=== PATIENT | female | born 1945 ===

== ENCOUNTER 2024-06-23 09:06 | Inpatient (IN) | payer MEDICARE, OTHER, SELFPAY ==
--- NOTE | 2024-05-18 10:28 | CM ---
Addendum entered by Lilian Ramirez 05/26/24 09:27:
VN referral completed (but not sent) in [employer] with request for PT and SN services. CM to send referral to [facility] with additional clinical after surgery.
Original Note:
Patient is scheduled for an elective L TKR on 06/23/24. Spoke with patient prior to surgery via telephone. Introduced role of Orthopedic Navigator. Patient reports that she lives alone in a two story home. She has a lift to enter the home and to the
second floor. She currently functions independently and describes herself as active. She has no DME and has never had VN services. PCP is [facility]Bakti Nunez.
Discussed orthopedic program and post surgical plans. Reviewed anticipated length of stay and that goal is for her to return home at discharge. Also reviewed outpatient PT. Patient is in agreement with tentative plan but will need VN services.
Options discussed and she selects [facility]. She will have someone staying with her until the Friday after surgery.
Patient has completed online education.
[2024-05-31 10:03] VITALS: BMI 34.5
[2024-05-31 11:33] LABS: ALT (SGPT) 18 U/L (0-35); AST (SGOT) 23 U/L (14-36); Albumin 4.5 g/dl (3.5-5.0); Alkaline Phosphatase 60 U/L (38-126); Blood Urea Nitrogen 24 mg/dl (7-17); Calcium 9.8 mg/dl (8.4-10.2); Carbon Dioxide 22 mmol/L (22-30); Chloride 104 mmol/L (98-107); Estimated Creatinine Clearance 77 ml/min; Glucose 182 mg/dl (70-99); Potassium 3.7 mmol/L (3.5-5.1); Sodium 138 mmol/L (135-145); Total Bilirubin 0.6 mg/dl (0.2-1.3); Total Protein 6.5 g/dl (6.3-8.2); eGFR > 60.00
[2024-06-16 16:34] VITALS: BMI 34.5
[2024-06-23] VITALS (12 sets, daily range): BP systolic 103–134; BP diastolic 48–83; PULSE 68–75; O2SAT 96; BMI 34.5
[2024-06-23] MEDS: TYLENOL 650 MG PO ×3 (09:38→20:40)
[2024-06-23] MEDS: CELEBREX 200 MG PO (09:38)
[2024-06-23] MEDS: NORMOSOL-R 1000 IV ×2 (09:45→14:28)
[2024-06-23 09:53] LABS: Glucose - Point of Care 160 mg/dl (70-99)
--- NOTE | 2024-06-23 11:38 | W.DS.TRANS ---
DC Summary - Yarn Spinner
-
Discharge Instructions:
Discharge Diagnosis/Procedures L TKA Dr. Ovalle 06/23/24
Diet Diabetic, Carb Controlled
Activity With Walker
Driving Restrictions No driving
Bathing Restrictions OK to Shower
Other Services PT,VN
Instructions:
Stand-Alone Forms: Total Hip/Knee Replacement D/C
Changes to Home Medications: Yes
Discharge Medications:
DC Medications w/original date entered in [employer]
aliskiren 150 mg tablet 150 mg PO DAILY 06/16/24
empagliflozin 10 mg tablet (Jardiance) 10 mg PO DAILY 06/16/24
famotidine 20 mg tablet 20 mg PO HS 06/16/24
glipizide 10 mg tablet 10 mg PO BID 06/16/24
hydrochlorothiazide 25 mg tablet 25 mg PO DAILY 06/16/24
metformin 500 mg tablet 2,000 mg PO DAILY@1200 06/16/24
multivitamin 1 tab PO DAILY 06/16/24
mupirocin 2 % topical ointment 1 applic topical BID 06/16/24
semaglutide 1 mg/dose (4 mg/3 mL) subcutaneous pen injector (Ozempic) 1 mg SC TU 06/16/24
simvastatin 20 mg tablet 20 mg PO HS 06/16/24
Saccharomyces boulardii 250 mg capsule (Florastor) 250 mg PO BID #1 cap 06/23/24
acetaminophen 325 mg capsule (Tylenol) 650 mg (2 x 325 mg) PO QID #2 caps 06/23/24
aspirin 325 mg tablet 325 mg PO DAILY blood clot prevention #1 tab 06/23/24
cefadroxil 500 mg capsule 500 mg PO BID infection prevention #14 caps 06/23/24
celecoxib 200 mg capsule 200 mg PO DAILY anti-inflammatory #14 caps 06/23/24
docusate sodium 100 mg capsule (Colace) 100 mg PO BID stool softner #1 cap 06/23/24
insulin degludec 100 unit/mL (3 mL) subcutaneous pen (Tresiba FlexTouch U-100 insulin) 16 unit (0.16 mL) SC HS #0 mL 06/23/24
magnesium hydroxide 400 mg/5 mL oral suspension (Milk of Magnesia) 30 ml PO HS PRN Constipation #1 mL 06/23/24
ondansetron 4 mg disintegrating tablet 4 mg PO Q6H PRN n/v #20 tabs 06/23/24
oxycodone 5 mg tablet 5 mg PO Q6H PRN 1 tab moderate pain, 2 tabs severe pain #30 tabs 06/23/24
sennosides 8.6 mg tablet (Senokot) 17.2 mg (2 x 8.6 mg) PO BID laxative #2 tabs 06/23/24
Home Medication Changes
aspirin 325 mg tablet 325 mg PO DAILY blood clot prevention #1 tab 06/23/24�
cefadroxil 500 mg capsule 500 mg PO BID infection prevention #14 caps 06/23/24�
celecoxib 200 mg capsule 200 mg PO DAILY anti-inflammatory #14 caps 06/23/24�
insulin degludec 100 unit/mL (3 mL) subcutaneous pen (Tresiba FlexTouch U-100 insulin) 16 unit (0.16 mL) SC HS #0 mL 06/23/24�
ondansetron 4 mg disintegrating tablet 4 mg PO Q6H PRN n/v #20 tabs 06/23/24�
oxycodone 5 mg tablet 5 mg PO Q6H PRN 1 tab moderate pain, 2 tabs severe pain #30 tabs 06/23/24�
Pending Results: No
[2024-06-23 14:18] LABS: Glucose - Point of Care 115 mg/dl (70-99)
[2024-06-23] MEDS: ROXICODONE 5 MG PO ×2 (15:04→19:01)
[2024-06-23 16:55] LABS: Glucose - Point of Care 192 mg/dl (70-99)
[2024-06-23] MEDS: GLUCOPHAGE 2000 MG PO (16:58)
[2024-06-23] MEDS: NOVOLOG FLEXPEN-MODERATE RESISTANCE 1 UNITS SC (16:59)
[2024-06-23] MEDS: NOVOLOG FLEXPEN SC (17:03)
[2024-06-23] MEDS: JARDIANCE 10 MG PO (18:37)
[2024-06-23] MEDS: ASPIRIN 325 MG PO (18:38)
[2024-06-23] MEDS: GLUCOTROL 10 MG PO (18:38)
--- NOTE | 2024-06-23 20:14 | PTCARENOTE ---
Received patient from PACU around 1600 via bed in stable condition. LLE + movement + sensation. Patient oriented to room. Call brooks in reach.
[2024-06-23] MEDS: BACTROBAN 2% OINTMENT 1 APPLIC NASAL (20:39)
[2024-06-23] MEDS: COLACE 100 MG PO (20:39)
[2024-06-23] MEDS: ANCEF 5 IV (20:39)
[2024-06-23] MEDS: TORADOL 15 MG IV (20:40)
[2024-06-23] MEDS: SENOKOT 17.2 MG PO (20:40)
[2024-06-23 21:44] LABS: Glucose - Point of Care 241 mg/dl (70-99)
[2024-06-23] MEDS: PEPCID 20 MG PO (22:17)
[2024-06-23] MEDS: NEURONTIN 300 MG PO (22:17)
[2024-06-23] MEDS: LIPITOR 10 MG PO (22:17)
[2024-06-23] MEDS: LANTUS 0.2 UNITS SC (22:18)
[2024-06-23] MEDS: ROXICODONE 10 MG PO (23:04)
[2024-06-24] VITALS (8 sets, daily range): BP systolic 92–118; BP diastolic 43–68; PULSE 70–82
[2024-06-24] MEDS: TYLENOL PO (00:23)
[2024-06-24] MEDS: ANCEF 5 IV (03:59)
[2024-06-24] MEDS: TYLENOL 650 MG PO ×3 (03:59→11:49)
[2024-06-24] MEDS: ROXICODONE 10 MG PO (05:08)
[2024-06-24 08:00] LABS: Glucose - Point of Care 164 mg/dl (70-99)
[2024-06-24] MEDS: JARDIANCE 10 MG PO (08:15)
[2024-06-24] MEDS: GLUCOTROL 10 MG PO (08:15)
[2024-06-24] MEDS: TORADOL 15 MG IV (08:16)
[2024-06-24] MEDS: CELEBREX 200 MG PO (08:16)
[2024-06-24] MEDS: COLACE 100 MG PO (08:16)
[2024-06-24] MEDS: ASPIRIN 325 MG PO (08:16)
[2024-06-24] MEDS: SENOKOT 17.2 MG PO (08:16)
[2024-06-24] MEDS: BACTROBAN 2% OINTMENT 1 APPLIC NASAL (08:17)
[2024-06-24] MEDS: NOVOLOG FLEXPEN-MODERATE RESISTANCE 1 UNITS SC ×2 (08:17→11:58)
[2024-06-24] MEDS: NOVOLOG FLEXPEN 4 UNITS SC ×2 (08:18→11:58)
[2024-06-24 11:08] LABS: Hepatitis C Antibody Negative (Negative)
--- NOTE | 2024-06-24 11:28 | W.PN.ORTHO ---
Today's Communication / Plan
-
d/c if BP check stable and asymptomatic
Assessment
.
Distal Motor Intact: Yes
Dressing:
Clean, dry and intact.
Assessment:
Jfypsrhkoau-lcjvlewkvvg-Lrmulspnm x1 IVF bolus-minimize opioid
Plan
.
Surgery / Date: Mariela Ovalle 06/23/24
DVT Prophylaxis: Aspirin
Activity:
Out of bed.
PT/OT
Discharge Plan: Home w/ VN
Subjective
.
.:
Patient resting comfortably.
Dizzy and nauseous earlier
Vital Signs and Labs
.
Vital Signs and Labs:
Lab Results
05/31/24 09:49
Temp Pulse Resp BP Pulse Ox
98.1 F 74 18 115/58 96
06/24/24 07:18 06/24/24 07:18 06/24/24 07:18 06/24/24 07:18 06/24/24 07:18
Non-invasive Hgb result: 10.2
Physical Exam
-
HEENT: No pallor, cyanosis, or jaundice. Throat clear.
NECK: Supple. No JVD.
RESPIRATORY: Lungs clear to auscultation.
CVS: S1, S2 normal. RRR.� No murmur, rub or gallop.
ABDOMEN: Soft, non-tender. No distension. BS+/normal.
EXTREMITIES: strength equal, no calf pain with palpation
[employer]OR [employer]: AOx3. No focal deficits. inside sales advertising executive grossly intact
[2024-06-24] MEDS: GLUCOPHAGE 2000 MG PO (11:49)
[2024-06-24] MEDS: ProAmatine 5 MG PO ×2 (11:49→14:44)
[2024-06-24 11:51] LABS: Glucose - Point of Care 183 mg/dl (70-99)
[2024-06-24] MEDS: NORMOSOL-R 250 IV ×2 (11:57→14:15)
[2024-06-24] MEDS: DECADRON 4 MG IV (14:44)
--- NOTE | 2024-06-24 14:49 | CM ---
Met with patient at the bedside; initial Assessment and Case Management Consult completed
IMM benefit explained; form signed @ 1445
Pharmacy verified: [facility] @ [address]
Patient lives alone in a multilevel home; enters home via ramp in garage; home has an Inclinator home elevator to 1st and 2nd floors;
PLOF: patient reported that she was independent with ADLs and ambulated without a device; drives; retired
DME: two rolling walkers; Glucometer, CPAP, DVT compression unit
NO SNF or Home Health utilization history
Son will transport home
Family or friend plan to stay in the home with her during first week post-op
Agreeable to Home Health services with [facility]NA: VN and PT
Plan: Discharge to home today with [facility] home health services
--- NOTE | 2024-06-24 15:07 | VNURNOTE ---
Home health liaison met with patient to discuss [facility] services, visit scheduling/frequency, homebound status and pet policy. Patient understands home visits will be 1-2 times a week to assess and teach medical management. Patient aware a visiting
nurse will contact her for start of care within 1-2 days after discharge from . [facility] Referral completed in care port. [facility] brochure given to patient
--- NOTE | 2024-06-24 15:42 | PTCARENOTE ---
Patient extrememly drowsy this morning. Patient had received 10 mg of Iveth twice throughout the night. Patients BP was also low this morning while working with OT. Christal Aaron aware. Fluid bolus ordered and midorine. Both given. Orthostatics post
bolus and midodrine were: supine 105/46 HR 70, sitting 92/44 HR 75, Standing 112/53 HR 75. Di MENDEZ made aware. Bolus repeated at 1330 and midodrine given at 1444. Linda bolus orthostatics: Sitting BP was 117/51 HR 76. Standing 109/55 HR 82.
Patient was asymptomatic.
== END 2024-06-24 15:42 | disposition home health service (06) | DRG 470 ==
LOC: 2 SOUTH 09:06
PROVIDERS: ADMITTING PHYSICIAN Orthopaedic Surgery; FAMILY PHYSICIAN Family Medicine
PROC: 0SRD0J9 Replacement of Left Knee Joint with Synthetic Substitute, Cemented, Open Approach (ICD-10-PCS; 2024-06-23)
DX: M17.12 Unilateral primary osteoarthritis, left knee (principal); E11.9 Type 2 diabetes mellitus without complications; I10 Essential (primary) hypertension; I95.81 Postprocedural hypotension; R11.0 Nausea; Z79.82 Long term (current) use of aspirin; Z79.4 Long term (current) use of insulin; Z79.84 Long term (current) use of oral hypoglycemic drugs; Z79.85 Long-term (current) use of injectable non-insulin antidiabetic drugs; Z79.899 Other long term (current) drug therapy; Z87.891 Personal history of nicotine dependence; Z85.3 Personal history of malignant neoplasm of breast; Z85.820 Personal history of malignant melanoma of skin; Z82.49 Family history of ischemic heart disease and other diseases of the circulatory system
CPT/HCPCS: 36415; 73560; 80053; 82962; 83036; 86803; 87070; 94660; 97110; 97116; 97162; 97166; 97530; 97535; C1713; C1776